=== PATIENT | male | born 1955 | race Caucasian/White ===

== ENCOUNTER 2016-10-01 16:36 | Emergency (ER) | payer SELFPAY ==
[~2016-10-01] VITALS: Ht 170.2 cm; Wt 98.0 kg
[2016-10-01 16:37] VITALS: BP 173/86; PULSE 76; RESP 20; TEMP 98.9; O2SAT 97
[2016-10-01] MEDS ORDERED: PLAV75TA29 PO (18:12)
[2016-10-01] MEDS ORDERED: ASPI81CH CHEW (18:12)
[2016-10-01] MEDS ORDERED: METO25TA3 PO (18:12)
--- NOTE | 2016-10-01 18:15 | PD ---
HPI Chief Complaint: ENT Complaint Time Seen by Provider: 18:14 Travel History International Travel<30 days: No Contact w/Intl Traveler<30days: No Traveled to known affect area: No History of Present Illness HPI 61-year-old male presents emergency Department with complaint of right ear pain , drainage, and muffled hearing 2 days. He said he used a Q-tip in his right ear 2 days ago and thinks there may have been a scab in his ear which he irritated with the Q-tip. His ear then became painful with the drainage. He denies fever, vomiting. Pain radiates down the right neck. He says he has a swollen lymph node in his right neck. Denies sore throat, cough, difficulty swallowing, nasal congestion. Has been taking ibuprofen for symptom management. Symptoms are mild in severity. No known allergies. No other medical complaints. No other modifying factors or associated signs and symptoms. PFSH Past Medical History Hx Anticoagulant Therapy: Yes Cardiac Catheterization: Yes Cardiovascular Problems: Yes (3 STENTS) COPD: Yes Diminished Hearing: Yes ([place]) Hypertension: Yes Respiratory: Yes (COPD) ?: Not Social History Alcohol Use: No Tobacco Use: Yes (/2 PPD) Substance Use: No Allergies-Medications (Allergen,Severity, Reaction): Coded Allergies: No Known Allergies (Unverified , 10/01/16) Reported Meds & Prescriptions Reported Meds & Active Scripts Active Ciprofloxacin (Ciprofloxacin HCl) 500 Mg Tab 500 Mg PO BID 10 Days Ciprodex Otic Drops (Ciprofloxacin-Dexamethasone Otic Drops) 0.3-0.1% Susp 4 Drop RIGHT EAR BID 7 Days Reported Aspirin 81 Mg Chew 81 Mg CHEW DAILY Plavix (Clopidogrel Bisulfate) 75 Mg Tab 75 Mg PO DAILY Metoprolol Tartrate 25 Mg Tab 25 Mg PO BID Review of Systems Except as stated in HPI: all other systems reviewed are Neg Physical Exam Narrative GENERAL: Well-nourished, well-developed male patient, in no acute distress; afebrile, nontoxic-appearing SKIN: Warm and dry. No rash. HEAD: Atraumatic. Normocephalic. EYES: Pupils equal and round. No scleral icterus. No injection or drainage. ENT: Mucosa pink and moist. No erythema or exudates. No uvular edema. No uvular , palatal, or tonsillar deviation. Airway patent. EARS: Tenderness on palpation to the right pinna and tragus; Bilateral pinnae appear within normal limits. Right external ear canal is edematous, painful, and with crusted drainage noted; I am unable to visualize the right tympanic membrane secondary to swelling of the ear canal. Left tympanic membranes without erythema, dullness or perforation. NECK: Trachea midline. Right cervical node lymphadenopathy. CARDIOVASCULAR: Regular rate. RESPIRATORY: No accessory muscle use. GASTROINTESTINAL: Obese. MUSCULOSKELETAL: No obvious deformities. No clubbing. No cyanosis. No edema. NEUROLOGICAL: Awake and alert. Oriented 3. No obvious cranial nerve deficits. Motor grossly within normal limits. Normal speech. Moves all extremities. 5/5 strength to all extremities. PSYCHIATRIC: Appropriate mood and affect; insight and judgment normal. Data Data Last Documented VS Vital Signs Date Time Temp Pulse Resp B/P (MAP) Pulse Ox O2 Delivery O2 Flow Rate FiO2 10/01/16 18:42 10/01/16 16:37 98.9 76 20 97 Room Air Orders Orders Ciprofloxacin (Cipro) (10/01/16 18:30) [facility] Medical Decision Making Medical Screen Exam Complete: Yes Emergency Medical Condition: Yes Medical Record Reviewed: Yes Differential Diagnosis Otitis media, otitis externa, perforated eardrum, foreign body, cerumen impaction Narrative Course 7-year-old male with right otitis media. The external ear canal is edematous and I cannot visualize the tympanic membrane. A wick was placed in the ear and patient was advised to remove the wick in 48 hours or less if the ear canal swelling decreases. See my procedure note for earwick placement. Patient tolerated well. She is afebrile and nontoxic-appearing. He denies fever, vomiting. He does have some lymphadenopathy to the right cervical lymph nodes, the tragus is edematous and tender on palpation and so is the joseph. I will prescribe oral antibiotics secondary to severity of the infection. Ciprodex and ciprofloxacin prescribed for home. Ibuprofen prescribed for home. Instructed patient to follow up with primary care provider. Patient verbalizes understanding and agreement with treatment plan. Patient is medically cleared and stable for discharge. Discussed reasons to return to the emergency department. Patient agrees with treatment plan. The patients vital signs are stable and the patient is stable for outpatient follow-up and treatment. Patient discharged home, stable and in no acute distress. Procedures Procedure Narrative Earwick placement: Tweezers were used to insert a wick into the right ear canal. Patient tolerated well. Diagnosis Primary Impression: Otitis externa of right ear Qualified Codes: H60.91 - Unspecified otitis externa, right ear Referrals: Primary Care Physician Patient Instructions: General Instructions, Otitis Externa (ED) Additional Instructions: Antibiotic ear drops to right ear as prescribed Remove the ear wick in 48 hours or earlier if it loosens up Take antibiotics as prescribed and complete full course Ibuprofen or Tylenol as directed and as needed to reduce pain and fever [id number] antihistamines or decongestants as directed and as needed for symptom management Avoid getting water in the ears Do not put anything in the ears; including Q-tips Follow-up with primary care provider Return to the emergency department immediately with worsening of symptoms Med/Other Pt SpecificInfo: Prescription(s) given Scripts Ciprofloxacin (Ciprofloxacin) 500 Mg Tab 500 MG PO BID for Infection for 10 Days, TAB 0 Refills Prov: Jayne Irby 10/01/16 Ciprofloxacin-Dexamethasone Otic Drops (Ciprodex Otic Drops) 0.3-0.1% Susp 4 DROP RIGHT EAR BID for Infection for 7 Days, #1 BOTTLE 0 Refills Prov: Jayne Irby 10/01/16 Disposition: 01 DISCHARGE HOME Condition: Stable Jayne Irby Oct 01, 2016 18:15
[2016-10-01] MEDS ORDERED: CIPROFLOXACIN 500 MG TAB PO ONE (18:30)
[2016-10-01] MEDS ORDERED: CIPR0.3S RIGHT EAR (18:32)
[2016-10-01] MEDS ORDERED: CIPR500T2 PO (18:32)
== END 2016-10-01 18:47 | disposition home or self-care (01) ==
LOC: NEPK 16:36
DX: H60.91 Unspecified otitis externa, right ear (principal); H66.91 Otitis media, unspecified, right ear; R59.0 Localized enlarged lymph nodes; M54.2 Cervicalgia; I10 Essential (primary) hypertension; H91.90 Unspecified hearing loss, unspecified ear; F17.200 Nicotine dependence, unspecified, uncomplicated; Z79.01 Long term (current) use of anticoagulants; Z86.79 Personal history of other diseases of the circulatory system; Z87.09 Personal history of other diseases of the respiratory system
CPT/HCPCS: 99284

== ENCOUNTER 2017-07-19 15:39 | Emergency (ER) | payer SELFPAY ==
[~2017-07-19 15:39] MED LIST: ASPI-516 CHEW; CIPR0.3S RIGHT EAR; CIPR500T2 PO; METO25TA3 PO; PLAV75TA29 PO
[2017-07-19 15:43] VITALS: BP 156/72; PULSE 98; RESP 16; TEMP 98; O2SAT 98
[2017-07-19] MEDS ORDERED: MEDR4PAK PO (16:11)
[2017-07-19] MEDS ORDERED: TYLE325T PO (16:11)
[2017-07-19] MEDS ORDERED: ROBA500T PO (16:11)
--- NOTE | 2017-07-19 16:12 | PD ---
HPI Chief Complaint: Back/ Neck Pain or Injury Time Seen by Provider: 15:57 Travel History International Travel<30 days: No Contact w/Intl Traveler<30days: No Traveled to known affect area: No History of Present Illness HPI 62-year-old male presents to the emergency department with complaint of low back pain 6 years. Says he has not been getting any better for the past 2 years and has been worse for the past 2 years. Says he has been having problems with his knees locking up for the past 1 year. He just got out of longterm 2 weeks ago and has been going to [facility] and having chiropractic procedures done. He did have an MRI 1 week ago and was told he has chronic degenerative disc disease and herniated disc. He denies encopresis , incontinence, saddle anesthesias. Denies IV drug use or cancer. Denies fever , vomiting, abdominal pain, vomiting, change in urine or stool. Denies new or recent injury. Rates pain 10/10. Worse with movement. Better at rest. Worse on right lower back and radiates down the right leg. Has been taking Tylenol, ibuprofen, naproxen, aspirin and doing chiropractic for symptom management. No primary care provider. No known allergies. History of cardiac stents and hypertension. Takes Plavix. Has no other medical complaints. No other modifying factors or associated signs and symptoms. PFSH Past Medical History Hx Anticoagulant Therapy: Yes Cardiac Catheterization: Yes Cardiovascular Problems: Yes (3 STENTS) COPD: Yes Diminished Hearing: Yes ([place]) Hypertension: Yes Respiratory: Yes (COPD) Social History Alcohol Use: No Tobacco Use: Yes (1/2 PPD) Substance Use: No Allergies-Medications (Allergen,Severity, Reaction): Coded Allergies: No Known Allergies (Unverified Adverse Reaction, Unknown, 07/19/17) Reported Meds & Prescriptions Reported Meds & Active Scripts Active Tylenol (Acetaminophen) 325 Mg Tab 650 Mg PO Q6H PRN Robaxin (Methocarbamol) 500 Mg Tab 500 Mg PO QID PRN Medrol Dosepak (Methylprednisolone) 4 Mg Dspk 4 Mg PO DIRECTED Per Pharmacist direction Ciprofloxacin (Ciprofloxacin HCl) 500 Mg Tab 500 Mg PO BID 10 Days Ciprodex Otic Drops (Ciprofloxacin-Dexamethasone Otic Drops) 0.3-0.1% Susp 4 Drop RIGHT EAR BID 7 Days Reported Aspirin 81 Mg Chew 81 Mg CHEW DAILY Plavix (Clopidogrel Bisulfate) 75 Mg Tab 75 Mg PO DAILY Metoprolol Tartrate 25 Mg Tab 25 Mg PO BID Review of Systems Except as stated in HPI: all other systems reviewed are Neg Physical Exam Narrative GENERAL: Well-nourished, well-developed male patient, in no acute distress; afebrile, nontoxic-appearing SKIN: Warm and dry. HEAD: Atraumatic. Normocephalic. EYES: Pupils equal and round. No scleral icterus. No injection or drainage. ENT: Mucosa pink and moist. Airway patent. NECK: Trachea midline. CARDIOVASCULAR: Regular rate. RESPIRATORY: No accessory muscle use. GASTROINTESTINAL: Rounded. MUSCULOSKELETAL: Bilateral lower extremities supple and non-tense with 2+ pedal pulses and sensory intact; with full range of motion and 5/5 strength. 2 + DTRs bilaterally. Active dorsiflexion and extension of bilateral feet. Right straight leg raise is positive for low back pain. Ambulatory in room with a limp to the right lower extremity. Sitting up in bed at 90. No obvious deformities. No clubbing. No cyanosis. No edema. BACK: Minimal midline point tenderness on palpation of the lumbar spine. Tenderness on palpation of right lumbar iliosacral area. No obvious deformities. NEUROLOGICAL: Awake and alert. Oriented 3. No obvious cranial nerve deficits. Motor grossly within normal limits. Normal speech. Moves all extremities. 5/5 strength to all extremities. Sensory intact. PSYCHIATRIC: Appropriate mood and affect; insight and judgment normal. Data Data Last Documented VS Vital Signs Date Time Temp Pulse Resp B/P (MAP) Pulse Ox O2 Delivery O2 Flow Rate FiO2 07/19/17 15:43 98.0 98 16 156/72 (100) 98 Orders Orders Orphenadrine Inj (Norflex Inj) (07/19/17 16:15) Ed Discharge Order (07/19/17 16:09) [facility] Medical Decision Making Medical Screen Exam Complete: Yes Emergency Medical Condition: Yes Medical Record Reviewed: Yes Differential Diagnosis Chronic low back pain, sciatica, degenerative disc disease, herniated disc Narrative Course 62-year-old male with chronic low back pain 6 years. No new or recent injury. Patient had MRI a week ago and was told he had degenerative disc disease and a herniated disc of the lumbar spine. He has been being seen at [facility]. He denies encopresis, incontinence, saddle anesthesias. Denies IV drug use or cancer. Patient is afebrile and nontoxic-appearing. Denies fever, vomiting. Patient does have some mild tenderness on palpation of the lumbar spine otherwise his pain is more right-sided to the ileal and sacral area. He is ambulatory in the room with a limp to the right lower extremity. His neuro exam is unremarkable. Patient provided information sheet to the [facility] for follow-up. Patient takes Plavix for his cardiac stent. Norflex administered in the ER. Tylenol, Medrol Dosepak, Robaxin prescribed for home. Instructed patient to follow up with primary care provider. Patient verbalizes understanding and agreement with treatment plan. Patient is medically cleared and stable for discharge. Discussed reasons to return to the emergency department. Patient agrees with treatment plan. The patients vital signs are stable and the patient is stable for outpatient follow- up and treatment. Patient discharged home, stable and in no acute distress. Diagnosis Primary Impression: Chronic low back pain with right-sided sciatica Qualified Codes: M54.41 - Lumbago with sciatica, right side; G89.29 - Other chronic pain Referrals: [facility] Primary Care Physician Patient Instructions: Chronic Back Pain (ED), General Instructions, Sciatica ( ED) Additional Instructions: Tylenol as directed and as needed for pain Robaxin as prescribed and as needed for muscle spasms Heating pad and/or ice to affected area to reduce pain Avoid aggravating activities; increase activity as tolerated Follow-up with primary care provider Return to emergency department immediately with worsening of symptoms Med/Other Pt SpecificInfo: Prescription(s) given Scripts Acetaminophen (Tylenol) 325 Mg Tab 650 MG PO Q6H Y for PAIN SCALE 1 TO 10, #20 TAB 0 Refills Prov: Jayne Irby 07/19/17 Methocarbamol (Robaxin) 500 Mg Tab 500 MG PO QID Y for MUSCLE SPASM, #30 TAB 0 Refills Prov: Jayne Irby 07/19/17 Methylprednisolone Dosepak (Medrol Dosepak) 4 Mg Dspk 4 MG PO DIRECTED, #1 DSPK 0 Refills Per Pharmacist direction Prov: Jayne Irby 07/19/17 Disposition: DISCHARGE HOME Condition: Stable Jayne Irby Jul 19, 2017 16:12
[2017-07-19] MEDS ORDERED: ORPHENADRINE INJ 60 MG/2 ML AMP IM ONE (16:15)
== END 2017-07-19 16:29 | disposition home or self-care (01) ==
LOC: NEPK 15:39
DX: M54.41 Lumbago with sciatica, right side (principal); G89.29 Other chronic pain; I10 Essential (primary) hypertension; Z79.01 Long term (current) use of anticoagulants; Z86.79 Personal history of other diseases of the circulatory system; Z87.09 Personal history of other diseases of the respiratory system
CPT/HCPCS: 96372; 99283; J2360